=== PATIENT | female | born 1995 | race African-American/Black ===

== ENCOUNTER 2017-04-14 12:32 | Emergency (ER) | payer OTHER ==
[~2017-04-14] VITALS: Ht 172.7 cm; Wt 104.3 kg
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
== END 2017-04-14 14:52 | disposition home or self-care (01) ==
LOC: CED 12:32 → CFTX 12:32
DX: S16.1XXA Strain of muscle, fascia and tendon at neck level, initial encounter (principal); V49.49XA Driver injured in collision with other motor vehicles in traffic accident, initial encounter; Y92.410 Unspecified street and highway as the place of occurrence of the external cause
CPT/HCPCS: 72040; 99284